=== PATIENT | male | born 2000 | race Caucasian/White ===

== ENCOUNTER 2023-06-12 02:28 | Emergency (ER) | payer BC, SELFPAY ==
[2023-06-12 02:31] VITALS: BP 169/95; PULSE 90; RESP 20; TEMP 36.8; O2SAT 100
--- NOTE | 2023-06-12 03:16 | ED.GENADULT ---
HPI - General Adult General Chief complaint: Ear Stated complaint: ear pain Time Seen by Provider: 06/12/23 02:44 History of Present Illness HPI narrative: This is a 23-year-old male presenting ED with chief complaint of ear pain. It started this evening around midnight. Patient has had cold symptoms for last 2-3 days. No fever chills nausea vomiting diarrhea chest pain difficulty breathing. Related Data Home Medications Medication Instructions Recorded Confirmed budesonide-formoterol HFA 80 2 puff inhalation Q12H 10/11/20 03/03/23 mcg-4.5 mcg/actuation aerosol inhaler (Symbicort) cetirizine 10 mg tablet (Zyrtec) 10 mg PO DAILY PRN 10/11/20 03/03/23 Allergies Allergy/AdvReac Type Severity Reaction Status Date / Time No Known Allergies Allergy Verified 06/12/23 02:38 [facility] Past Medical History Medical History Arthralgia BMI 23.0-23.9, adult Chronic sinusitis Family History Family History Father No problems noted. Mother , suicide No problems noted. Sibling No problems noted. 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 Gender identity (if verbalized by the patient): Male Exam Narrative: APPEARANCE: No apparent distress. Head: Left tympanic membrane is erythematous and bulging, no bullae, right TM is normal. EYES: EOMI, NOSE: Atraumatic NECK: Trachea midline RESPIRATORY: No increased rate of breathing CARDIOVASCULAR: RRR, ABDOMINAL: Non-distended MUSCULOSKELETAl: No obvious deformities NEURO: Alert. Moving 4/4 extremities SKIN:: Warm, dry. Normal color PSYCHIATRIC: Normal affect Course Vital Signs Vital signs: Vital Signs Temperature 98.3 F 06/12/23 02:31 Pulse Rate 90 06/12/23 02:31 Respiratory Rate 20 06/12/23 02:31 Blood Pressure 169/95 H 06/12/23 02:31 Pulse Oximetry 100 06/12/23 02:31 Oxygen Delivery Room Air 06/12/23 02:31 Temperature 98.3 F 06/12/23 02:31 Pulse Rate 90 06/12/23 02:31 Respiratory Rate 20 06/12/23 02:31 Blood Pressure 169/95 H 06/12/23 02:31 Pulse Oximetry 100 06/12/23 02:31 Oxygen Delivery Room Air 06/12/23 02:31 Medical Decision Making MDM Narrative Medical decision making narrative: -Course: 23-year-old presenting with ear pain and URI symptoms. Left tympanic membrane is erythematous and bulging. 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
[2023-06-12] MEDS: IBUPROFEN 400 MG TABLET 800 MG PO (03:24)
[2023-06-12] MEDS: AMOXICILLIN/CLAVULANATE K 875-125 MG TAB 1 TABLET PO (03:25)
[2023-06-12] MEDS: ACETAMINOPHEN 500 MG TABLET 1000 MG PO (03:25)
[2023-06-12 03:29] VITALS: BP 147/92; PULSE 89; RESP 19; O2SAT 100
== END 2023-06-12 03:30 | disposition home or self-care (01) ==
PROVIDERS: Emergency Provider Emergency Medicine; PCP Family Medicine
DX: H66.92 Otitis media, unspecified, left ear (principal); J32.9 Chronic sinusitis, unspecified
CPT/HCPCS: 99283; A9270

== ENCOUNTER 2024-12-06 13:14 | Outpatient (CLI) | payer OTHER, SELFPAY ==
--- NOTE | ~2024-12-06 | XR_ITS ---
XR abdomen/kub 1V 12/06/2024 13:26 INDICATION: Abdominal pain TECHNIQUE: KUB COMPARISON: No prior studies for comparison. FINDINGS: Bowel gas pattern is normal. There is no evidence of free air, mass, organomegaly, ascites or obstruction. No abnormal calculi are seen. The bones appear intact. IMPRESSION: 1: No acute abdominal abnormality identified. Reviewed, dictated and finalized at location []
== END 2024-12-06 13:15 | disposition home or self-care (01) ==
LOC: MICIMG 13:16
PROVIDERS: PCP Family Medicine; Visit Provider Nurse Practitioner Adult Health
DX: R10.12 Left upper quadrant pain (principal)
CPT/HCPCS: 74018

== ENCOUNTER 2024-12-16 10:17 | Outpatient (CLI) | payer OTHER, SELFPAY ==
--- NOTE | ~2024-12-16 | US_ITS ---
Abdominal Sonogram: Real-time sonographic imaging of the abdomen was performed. Clinical History: Left upper quadrant pain Findings: The liver appears normal with no evidence of mass lesion or bile duct dilatation. Main por priscila vein demonstrates normal direction of flow. The spleen is normal in size without evidence of foca l lesion. The gallbladder is well distended, and appears normal with no evidence of gallstone or wal l thickening. The common bile duct measures 3 mm. The visualized pancreas, aorta, and IVC are unrema rkable. The right kidney measures 11.3 cm in length and the left kidney measures 11.6 cm. There is no hydronephrosis or renal calculus. Impression: Unremarkable abdominal ultrasound. Reviewed, dictated and finalized at location . Impression: Unremarkable abdominal ultrasound.
== END 2024-12-16 10:18 | disposition home or self-care (01) ==
LOC: MICIMG 10:17
PROVIDERS: PCP Family Medicine; Visit Provider Family Medicine
DX: R10.12 Left upper quadrant pain (principal)
CPT/HCPCS: 76700